=== PATIENT | male | born 1960 | race Asian ===

== ENCOUNTER 2021-02-11 05:42 | Emergency (ER) | payer BC ==
[~2021-02-11 05:42] MED LIST: Morphine 4 MG/ML VIAL ONE; Ondansetron PF 4 MG/2 ML Vial ONE
[2021-02-11 06:20] LABS: Bilirubin Neg (Negative); Blood, Urine Negative (Negative); Clarity Clear (Clear); Glucose, Urine (Dipstick) Normal (Negative); Ketone, Urine Negative (Negative); Leukocyte Negative (Negative); Nitrite Negative (Negative); Protein, Urine (Dipstick) Negative (Neg-Trace); Specific Gravity, Urine 1.005 (1.002-1.036); Urobilinogen Normal mg/dL (Less than 2)
[2021-02-11 06:28] LABS: Hemoglobin 14.2 g/dL (13.5-17.5); Mean Corpuscular HGB CONC 34.6 g/dL (32.0-36.0); Mean Corpuscular Hemoglobin 32.1 pg (27.0-33.0); Mean Corpuscular Volume 92.8 fl (81.2-95.1); Mean Platelet Volume 11.3 fl (7.4-10.4); Platelet Count 195 10x3/uL (150-450); RBC Distribution Width 12.5 % (11.5-14.5); Red Blood Cell (RBC) Count 4.42 10x6/uL (4.32-5.72); White Blood Cell (WBC) Count 14.1 10x3/uL (3.5-10.5)
[2021-02-11 06:29] LABS: MDiff Complete? YES
[2021-02-11 06:30] LABS: Band 3 % (5-11); Eosinophils 1 % (0-10); Lymphocytes 18 % (21-51); Monocytes 4 % (0-10); Neutrophil 73 % (42-75); Reactive Lymphocytes 2 % (0-10)
[2021-02-11 06:31] LABS: Platelet Morphology Comment Appears Adequate; RBC Morphology Normal
[2021-02-11 06:32] LABS: CKMB 2.7 ng/mL (0-6.6); Troponin I Less than 0.010 ng/mL (< 0.028)
[2021-02-11 06:37] LABS: Lactic Acid 1.3 mmol/L (0.5-2.2)
[2021-02-11 06:39] LABS: ALT (SGPT) 28 U/L (8-55); AST (SGOT) 25 U/L (5-34); Albumin 4.5 g/dL (3.5-5.0); Alkaline Phosphatase 72 U/L (40-110); BUN (Urea Nitrogen) 18 mg/dL (8.4-25.7); Bilirubin, Total 0.3 mg/dL (0.2-1.2); CK (CPK) 583 U/L (30-200); Calc. Creatinine Clearance 0 mL/min (70-130); Calcium 9.2 mg/dL (7.8-10.44); Carbon Dioxide 23 mmol/L (22-29); Chloride 106 mmol/L (98-107); Globulin 3.4 g/dL (2.4-3.5); Glucose 114 mg/dL (70-105); Lipase 25 U/L (8-78); Potassium 3.4 mmol/L (3.5-5.1); Protein, Total 7.9 g/dL (6.0-8.3); Sodium 140 mmol/L (136-145)
[2021-02-11 06:41] LABS: Anion Gap 14 mmol/L (10-20)
== END 2021-02-11 06:52 | disposition home or self-care (01) ==
LOC: CSHERS 05:42
DX: K80.20 Calculus of gallbladder without cholecystitis without obstruction (principal); D72.829 Elevated white blood cell count, unspecified; R94.31 Abnormal electrocardiogram [ECG] [EKG]
CPT/HCPCS: 74177; 76705; 80053; 81003; 82550; 82553; 83605; 83690; 83735; 84484; 85025; 93005; 93010; 96374; 96375

== ENCOUNTER 2021-04-27 11:43 | Outpatient (CLI) | payer OTHER ==
[2021-04-28 14:44] LABS: SARS-CoV-2 PCR by NAA Not Detected (NotDetected)
== END 2021-04-27 11:44 | disposition home or self-care (01) ==
LOC: CSHLAB 11:43
PROVIDERS: ATTEND Surgery
DX: Z20.822 Contact with and (suspected) exposure to COVID-19 (principal); K80.20 Calculus of gallbladder without cholecystitis without obstruction
CPT/HCPCS: U0003; U0005

== ENCOUNTER 2021-04-30 05:51 | Day surgery (SDC) | payer OTHER ==
[2021-04-27 11:07] VITALS: BMI 27.4
[2021-04-30] MEDS ORDERED: PROPOFOL 20 ML ONE (06:52)
[2021-04-30] MEDS ORDERED: Lidocaine 1% PF 5 ML VIAL ONE (06:53)
[2021-04-30] MEDS ORDERED: EPINEPHrine 1 MG/ML AMP ONE (06:53)
[2021-04-30] MEDS ORDERED: Rocuronium Bromide 10 MG/ML (10ML VIAL) ONE (06:53)
[2021-04-30] MEDS ORDERED: Fentanyl 100 MCG/2 ML VIAL ONE ×2 (06:53→08:42)
[2021-04-30] MEDS ORDERED: Bupivacaine PF 0.5% 30 ML VIAL ONE (06:53)
[2021-04-30] MEDS ORDERED: Lidocaine 1% MPF 2 ML VIAL ONE (06:59)
[2021-04-30] MEDS ORDERED: ceFAZolin 2 GM/Dextrose 50 ML IVPB ONE (07:24)
[2021-04-30] MEDS ORDERED: Glycopyrrolate 0.2 MG/ML 5 ML SYRINGE ONE (07:49)
[2021-04-30] MEDS ORDERED: Dexamethasone 20 MG/5 ML VIAL ONE (07:50)
[2021-04-30] MEDS ORDERED: PHENYLEPHRINE-NS 100 MCG/ML 10 ML SYRINGE ONE (07:59)
[2021-04-30] MEDS ORDERED: Ondansetron PF 4 MG/2 ML Vial ONE (08:16)
[2021-04-30] MEDS ORDERED: Ketorolac Tromethamine 30 MG/ML VIAL ONE (08:16)
[2021-04-30] MEDS ORDERED: HYDROcodone/Acetaminophen 5/325 mg Tablet PO PRN (08:33)
== END 2021-04-30 09:40 | disposition home or self-care (01) ==
LOC: CSHSDC 05:51
PROVIDERS: ATTEND Surgery
PROC: 0FT44ZZ Resection of Gallbladder, Percutaneous Endoscopic Approach (ICD-10-PCS; principal; 2021-04-30)
DX: K80.10 Calculus of gallbladder with chronic cholecystitis without obstruction (principal); F17.210 Nicotine dependence, cigarettes, uncomplicated
CPT/HCPCS: 88304; C1776; J0171; J0690; J1100; J1885; J2405; J2704; J3010; S0020

== ENCOUNTER 2021-10-16 13:25 | Outpatient (CLI) | payer OTHER | END 2021-10-16 13:26 | disposition home or self-care (01) | LOC: CSHLAB 13:25 | PROVIDERS: ATTEND Internal Medicine Gastroenterology | DX: Z20.822 Contact with and (suspected) exposure to COVID-19 (principal); R10.9 Unspecified abdominal pain | CPT/HCPCS: 87811 ==

== ENCOUNTER 2021-10-20 07:46 | Day surgery (SDC) | payer OTHER ==
[2021-10-16 10:33] VITALS: BMI 27.6
[2021-10-20] MEDS ORDERED: PROPOFOL 20 ML ONE ×2 (10:41)
[2021-10-20] MEDS ORDERED: Lidocaine 1% PF 5 ML VIAL ONE (10:42)
[2021-10-20] MEDS ORDERED: Glycopyrrolate 0.2 MG/ML 5 ML SYRINGE ONE (11:36)
== END 2021-10-20 12:05 | disposition home or self-care (01) ==
LOC: CSHSDC 07:46
PROVIDERS: ATTEND Internal Medicine Gastroenterology
PROC: 0DB68ZX Excision of Stomach, Via Natural or Artificial Opening Endoscopic, Diagnostic (ICD-10-PCS; principal; 2021-10-20)
DX: K31.89 Other diseases of stomach and duodenum (principal); K25.9 Gastric ulcer, unspecified as acute or chronic, without hemorrhage or perforation; K44.9 Diaphragmatic hernia without obstruction or gangrene; E78.5 Hyperlipidemia, unspecified; F17.200 Nicotine dependence, unspecified, uncomplicated
CPT/HCPCS: 88305; J2704

== ENCOUNTER 2021-11-11 11:39 | Outpatient (CLI) | payer OTHER | END 2021-11-11 11:40 | disposition home or self-care (01) | LOC: CSHLAB 11:39 | PROVIDERS: ATTEND Internal Medicine Gastroenterology | DX: Z20.822 Contact with and (suspected) exposure to COVID-19 (principal) | CPT/HCPCS: 87811 ==

== ENCOUNTER 2021-11-16 07:09 | Day surgery (SDC) | payer OTHER ==
[2021-11-12 14:52] VITALS: BMI 27.4
[2021-11-16] MEDS ORDERED: Lidocaine 1% MPF 2 ML VIAL ONE (07:59)
[2021-11-16] MEDS ORDERED: PROPOFOL 20 ML ONE ×2 (08:35→08:53)
[2021-11-16] MEDS ORDERED: Lidocaine 1% PF 5 ML VIAL ONE (08:35)
[2021-11-16] MEDS ORDERED: PROPOFOL 0 ML ONE (08:35)
[2021-11-16] MEDS ORDERED: ePHEDrine Sulfate 50 MG/10 ML VIAL ONE (09:26)
[2021-11-16] MEDS ORDERED: Simethicone 40 MG/0.6 ML Drop 30 ML BOT ONE (09:29)
== END 2021-11-16 10:10 | disposition home or self-care (01) ==
LOC: CSHSDC 07:09
PROVIDERS: ATTEND Internal Medicine Gastroenterology
PROC: 0DJD8ZZ Inspection of Lower Intestinal Tract, Via Natural or Artificial Opening Endoscopic (ICD-10-PCS; principal; 2021-11-16)
DX: Z12.11 Encounter for screening for malignant neoplasm of colon (principal); K64.9 Unspecified hemorrhoids; E78.5 Hyperlipidemia, unspecified; K29.70 Gastritis, unspecified, without bleeding; Z87.19 Personal history of other diseases of the digestive system; Z87.11 Personal history of peptic ulcer disease; Z20.822 Contact with and (suspected) exposure to COVID-19; Z90.49 Acquired absence of other specified parts of digestive tract
CPT/HCPCS: J2704